=== PATIENT | male | born 1970 | race Caucasian/White ===

== ENCOUNTER 2020-10-12 07:22 | Day surgery (SDC) | payer BC ==
[2020-10-12] VITALS (7 sets, daily range): BP systolic 126–145; BP diastolic 65–88; PULSE 71–79; TEMP 97.7–98.6
[~2020-10-12] VITALS: Ht 182.9 cm; Wt 94.5 kg
[~2020-10-12 07:22] MED LIST: ACETAMINOPHEN W1 TA6 PO; CEPHALEXIN; LEVOTHYROXINE PO; TAMIFLU 75MG75 MG PO
[2020-10-12] MEDS ORDERED: DUO-KAPS1 CAP PO (08:58)
[2020-10-12] MEDS ORDERED: PHARMASSURE ZIN50 MG PO (08:59)
[2020-10-12] MEDS ORDERED: VITAMINC1000TA PO (08:59)
[2020-10-12] MEDS ORDERED: VITAMIND3 5000 PO (09:00)
[2020-10-12] MEDS ORDERED: [UNRECOGNIZED DRUG - OTHER] PO (09:02)
[2020-10-12] MEDS ORDERED: THYROID COMPLEX PO (09:03)
[2020-10-12] MEDS ORDERED: LIVER CLEANSE PO (09:04)
[2020-10-12] MEDS ORDERED: TURMERIC500 MG PO (09:04)
[2020-10-12] MEDS ORDERED: THE MEDICINE S200 M2 PO (09:06)
[2020-10-12] MEDS ORDERED: [UNRECOGNIZED DRUG - OTHER] PO (09:06)
[2020-10-12] MEDS ORDERED: ARMOUR THYROID120 MG PO (09:07)
[2020-10-12] MEDS ORDERED: ARMOUR THYROID30 MG PO ×2 (09:07→09:09)
[2020-10-12] MEDS ORDERED: FISH OIL 1000MG1 CAP PO (09:10)
[2020-10-12] MEDS ORDERED: NORCO 325 MG-51 TAB PO (11:08)
--- NOTE | 2020-10-12 11:50 | NUR ---
Patient returns to room per cart from PACU accompanied by Olga VIERA and is awake and alert. Temp 97.1 and room air sats 98%. Bandaids x3 on abdomen dry. Scrotal support in place. IV fluids infusing. Site is free of redness. Spouse in room. Call light in reach. Siderails up x2.
--- NOTE | 2020-10-12 12:05 | NUR ---
Resting and taking sips of water.
--- NOTE | 2020-10-12 12:20 | NUR ---
Continues to rest and offers no complaints of pain or nausea.
--- NOTE | 2020-10-12 12:35 | NUR ---
Eating applesauce and sipping on water.
--- NOTE | 2020-10-12 13:05 | NUR ---
Tolerated applesauce and water. Continues to deny pain or nausea.
--- NOTE | 2020-10-12 13:10 | NUR ---
Assisted up to the bathroom. Gait steady and denies pain or feeling dizzy.
--- NOTE | 2020-10-12 13:15 | NUR ---
Returns to room. IV discontinued and site is free of redness. Dresses self. Bandaids remain dry.
--- NOTE | 2020-10-12 13:30 | NUR ---
Dismissal instructions given and voices understanding of these. Instructed on pain medications.
--- NOTE | 2020-10-12 13:34 | NUR ---
Patient dismissed to home driven by spouse and taken to the front door per wheelchair and assisted into vehicle driven by spouse with dismissal instructions in hand.
== END 2020-10-12 13:34 | disposition home or self-care (01) ==
LOC: SDCO 07:22
DX: K40.90 Unilateral inguinal hernia, without obstruction or gangrene, not specified as recurrent (principal); E06.3 Autoimmune thyroiditis; Z79.890 Hormone replacement therapy; Z20.822 Contact with and (suspected) exposure to COVID-19
CPT/HCPCS: C1781; J0690; J1100; J1885; J2250; J2405; J2704; J3010; J7120